=== PATIENT | male | born 1960 | race Two or more races ===

== ENCOUNTER 2016-11-09 19:30 | Emergency (ER) | payer MEDICARE, MEDICAID ==
--- NOTE | ~2016-11-09 | ER ---
PATIENT'S NAME: KATHY HEARN [facility] AGE: 56 Y [address] ROOM: [place] [address] LOCATION: [facility] ADMIT DATE: 11/09/2016 ER/Outpatient Report DISCHARGE DATE: 11/09/2016 FAMILY PHYSICIAN: Elder Cortes MD ATTENDING PHYSICIAN: Bruce Ng Admission date and time documented in the medical record. I saw the patient at 1945 hours. CHIEF COMPLAINT: G-tube fell out and need replacement. HISTORY OF PRESENT ILLNESS: This patient is a 56-year-old male. About 30 minutes prior to admission to the emergency room, his G-tube fell out. The bulb burst and it fell out. He needs a replacement. He has no abdominal pain, back pain, chest pain, shortness of breath. He has no nausea, no diarrhea, and no urinary symptoms. HOME MEDICATIONS: See attached medication list. ALLERGIES: NONE. SOCIAL HISTORY: Nonsmoker and nondrinker. SIGNIFICANT PAST MEDICAL HISTORY: Atherosclerotic ischemic heart disease with coronary artery disease, nasopharyngeal cancer, dyslipidemia, hypothyroidism, bbt-qhtucvv-jevyxocvt diabetes mellitus type 2, chronic kidney disease, hypertension, esophageal stenosis, and obstructive sleep apnea. OPERATIONS: PEG tube placement, appendectomy, chemotherapy, radiation therapy, cardiac catheterization with PTCA and stenting. ROS: All systems reviewed by me are negative with exception of those discussed in the history of the present illness. PHYSICAL EXAMINATION: VITAL SIGNS: Temperature 97.3, tympanic; pulse 88; respiratory rate 14; blood pressure 144/83; O2 saturation on room air is 98%. ABDOMEN: Flat, soft, good bowel tones. No organomegaly or abnormal masses PATIENT'S NAME: KATHY HEARN [facility] AGE: 56 Y [address] ROOM: [place] [address] LOCATION: [facility] ADMIT DATE: 11/09/2016 ER/Outpatient Report DISCHARGE DATE: 11/09/2016 FAMILY PHYSICIAN: Elder Cortes MD ATTENDING PHYSICIAN: Bruce Ng palpable. No CVA tenderness. LUNGS: Clear. HEART: Regular. EMERGENCY DEPARTMENT COURSE: Placed a new PEG tube in place, inflated the balloon with 6 mL of sterile water. Dressed the wounds. The patient tolerated the procedure well. IMPRESSION: Replacement of PEG tube that fell out. PLAN: The patient dismissed home. Observation. Activity as tolerated. Continue present home medications and care. Follow up with personal physician as needed. Discussion ensued with the patient concerning my findings and recommendations, he understands. MD ALFRED BELTRAN/estelle /[id number] d: 11/10/16 0032 t: 11/10/16 1825, OUTPATIENT REPORT
== END 2016-11-09 19:54 | disposition disaster alternative care site (69) ==
LOC: GMED 19:30
PROC: 0D20XUZ Change Feeding Device in Upper Intestinal Tract, External Approach (ICD-10-PCS; principal; 2016-11-09)
DX: Z43.1 Encounter for attention to gastrostomy (principal); I25.10 Atherosclerotic heart disease of native coronary artery without angina pectoris; E78.5 Hyperlipidemia, unspecified; E03.9 Hypothyroidism, unspecified; I12.9 Hypertensive chronic kidney disease with stage 1 through stage 4 chronic kidney disease, or unspecified chronic kidney disease; E11.22 Type 2 diabetes mellitus with diabetic chronic kidney disease; N18.9 Chronic kidney disease, unspecified; G47.33 Obstructive sleep apnea (adult) (pediatric); Z85.22 Personal history of malignant neoplasm of nasal cavities, middle ear, and accessory sinuses; Z90.49 Acquired absence of other specified parts of digestive tract

== ENCOUNTER 2016-12-26 16:04 | Emergency (ER) | payer MEDICARE, MEDICAID ==
--- NOTE | ~2016-12-26 | ER ---
PATIENT'S NAME: KATHY HEARN [facility] AGE: 56 Y [address] ROOM: [place] [address] LOCATION: [facility] ADMIT DATE: 12/26/2016 ER/Outpatient Report DISCHARGE DATE: 12/26/2016 FAMILY PHYSICIAN: Elder Cortes MD ATTENDING PHYSICIAN: Tobias Petersno Time of Arrival: 1610 hours. Time of Exam: 1612 hours. CHIEF COMPLAINT: Left earache. HISTORY OF PRESENT ILLNESS: The patient states he began having pain in his left ear earlier today and he felt it was wet, so he put a Q-tip just in the tip of his ear and blood was on the end of the Q-tip. Denies having any nasal congestion. No runny nose. Has not had a sore throat. Denies feeling feverish. Has not had a cough. He reports that he had a tube placed in the ear 2 months ago for a recurrent ear infection. ALLERGIES: NO KNOWN ALLERGIES. CURRENT MEDICATIONS: On his chart and reviewed by me. PAST MEDICAL HISTORY: Bjb-dldodjb-ykgahuspo diabetes, hypertension, ear infection, heart disease, hypertension, elevated cholesterol, and nasal cancer. PAST SURGERIES: Appendectomy, tympanoplasty tube in the left ear, and cardiac stents. SOCIAL HISTORY: He denies use of tobacco, drugs, or alcohol. REVIEW OF SYSTEMS: All negative other than those mentioned in the HPI. PHYSICAL EXAMINATION: VITAL SIGNS: He weighed 70.5 kg. Blood pressure 154/93, pulse of 94, respirations 18, temperature of 98.6, and O2 saturation is 96% on room air. GENERAL: He is awake, alert, and oriented x4. SKIN: [place], warm, and dry. RESPIRATIONS: Even and nonlabored. Right TM is dull. Left TM has fluid. PATIENT'S NAME: KATHY HEARN [facility] AGE: 56 Y [address] ROOM: [place] [address] LOCATION: [facility] ADMIT DATE: 12/26/2016 ER/Outpatient Report DISCHARGE DATE: 12/26/2016 FAMILY PHYSICIAN: Elder Cortes MD ATTENDING PHYSICIAN: Tobias Peterson The TM looks bloody in nature, but no acute bleeding at this time. Ear canal is clear. Nasal is boggy. Oropharynx is clear. NECK: Supple. No lymphadenopathy. LUNGS: Lung sounds are clear throughout. HEART: Regular rate and rhythm. IMPRESSION: Infected left ear. PLAN: The patient states he was given ear drops right after surgery, most likely Ciprodex. He is to start those now. Use as directed. Tylenol or ibuprofen for fever or discomfort. If he continues to have problems in the next 2-3 days, he needs to follow up with Dr. Watts, his ENT specialist or return to the ER. He verbalized understanding. ALPESH NICOLE APRN FOR MD SELVIN VASQUEZ/estelle /[id number] d: 12/27/16 0117 t: 01/04/17 1934, OUTPATIENT REPORT
== END 2016-12-26 16:17 | disposition disaster alternative care site (69) ==
LOC: GMED 16:04
DX: H66.92 Otitis media, unspecified, left ear (principal); E11.9 Type 2 diabetes mellitus without complications; C76.0 Malignant neoplasm of head, face and neck; I10 Essential (primary) hypertension; E78.00 Pure hypercholesterolemia, unspecified; Z86.79 Personal history of other diseases of the circulatory system; Z90.49 Acquired absence of other specified parts of digestive tract; Z95.5 Presence of coronary angioplasty implant and graft; Z79.82 Long term (current) use of aspirin; Z79.899 Other long term (current) drug therapy

== ENCOUNTER 2017-01-28 09:11 | Emergency (ER) | payer MEDICARE, MEDICAID ==
--- NOTE | ~2017-01-28 | ER ---
PATIENT'S NAME: KATHY HEARN [facility] AGE: 56 Y [address] ROOM: [place] [address] LOCATION: [facility] ADMIT DATE: 01/28/2017 ER/Outpatient Report DISCHARGE DATE: 01/28/2017 FAMILY PHYSICIAN: Elder Cortes MD ATTENDING PHYSICIAN: Chris Bonilla TIME OF ARRIVAL: 0918 hours. TIME OF EVALUATION: 0920 hours. CHIEF COMPLAINT: G-tube came out. HISTORY OF PRESENT ILLNESS: The patient is a 56-year-old male who presents to the emergency department today with a chief complaint of G-tube came out. 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 It occurred about 45 minutes prior to arrival. He denies any fevers or chills. No nausea or vomiting. No diarrhea or constipation. No chest pain. No shortness of breath. No other complaints. This has been working appropriately otherwise. PAST MEDICAL HISTORY: Coronary artery disease, nasopharyngeal cancer, dyslipidemia, hypothyroidism, vbi-zdjbhcu-yeiwczplt diabetes mellitus type 2, chronic kidney disease, hypertension, esophageal stenosis, obstructive sleep apnea. PAST SURGICAL HISTORY: PEG tube placement, appendectomy, chemotherapy, radiation therapy, and cardiac catheterization with percutaneous transluminal coronary angioplasty and stenting. SOCIAL HISTORY: The patient denies any tobacco, alcohol, or illicit drug use. ALLERGIES: NO KNOWN DRUG ALLERGIES. MEDICATIONS: Please see list. PRIMARY CARE DOCTOR: Micah Cooper MD PATIENT'S NAME: KATHY HEARN [facility] AGE: 56 Y [address] ROOM: [place] [address] LOCATION: [facility] ADMIT DATE: 01/28/2017 ER/Outpatient Report DISCHARGE DATE: 01/28/2017 FAMILY PHYSICIAN: Elder Cortes MD ATTENDING PHYSICIAN: Chris Bonilla REVIEW OF SYSTEMS: All systems are reviewed by myself and are negative with the exception of those discussed in HPI and past medical history. PHYSICAL EXAMINATION: VITAL SIGNS: Weight 69.8 kg, blood pressure 155/82, pulse 87, respiratory rate 16, temperature 97.0, oxygen saturation 97% on room air. GENERAL: The patient is a 56-year-old male, who appears stated age, in no acute distress at this time. HEENT: Normocephalic, atraumatic. Pupils are equal, round, and reactive to light. Extraocular motions are intact. Nares are patent bilaterally. TMs are clear. NECK: Supple. There is no nuchal rigidity. CARDIOVASCULAR: Regular rate and rhythm. No murmurs, rubs, or gallops. LUNGS: Clear to auscultation bilaterally. No wheezes, rales, or rhonchi. ABDOMEN: Soft, nontender, and nondistended. No rebound, rigidity, or guarding. The patient does have G-tube at the stoma site. There is no erythema surrounding. SKIN: Otherwise warm and dry. LABORATORY DATA AND X-RAYS: None. IMPRESSION: 1. G-tube dysfunction with replacement. 2. Initial visit. EMERGENCY DEPARTMENT COURSE: The patient was brought back to the examination room. Seen and evaluated by myself. History and physical was performed. The patient's G-tube is replaced. Sterile lubrication is used. The balloon was inflated with 6 mL of sterile water. The gastric contents are obtained. The wound is dressed. The patient tolerated the procedure well. DISPOSITION: The patient is discharged to home in good condition. DO SOCORRO AGUILAR/estelle PATIENT'S NAME: KATHY HEARN [facility] AGE: 56 Y [address] ROOM: [place] [address] LOCATION: [facility] ADMIT DATE: 01/28/2017 ER/Outpatient Report DISCHARGE DATE: 01/28/2017 FAMILY PHYSICIAN: Elder Cortes MD ATTENDING PHYSICIAN: Chris Bonilla /[id number] d: 01/28/17 1348 t: 01/30/17 0708, OUTPATIENT REPORT
== END 2017-01-28 09:40 | disposition disaster alternative care site (69) ==
LOC: GMED 09:11
PROC: 0D9680Z Drainage of Stomach with Drainage Device, Via Natural or Artificial Opening Endoscopic (ICD-10-PCS; principal; 2017-01-28)
DX: K94.23 Gastrostomy malfunction (principal); I25.10 Atherosclerotic heart disease of native coronary artery without angina pectoris; E78.5 Hyperlipidemia, unspecified; E11.22 Type 2 diabetes mellitus with diabetic chronic kidney disease; E03.9 Hypothyroidism, unspecified; I12.9 Hypertensive chronic kidney disease with stage 1 through stage 4 chronic kidney disease, or unspecified chronic kidney disease; N18.9 Chronic kidney disease, unspecified; G47.33 Obstructive sleep apnea (adult) (pediatric); Z90.49 Acquired absence of other specified parts of digestive tract; Z79.82 Long term (current) use of aspirin; Z98.890 Other specified postprocedural states; Z79.899 Other long term (current) drug therapy

== ENCOUNTER 2017-04-10 01:06 | Emergency (ER) | payer MEDICARE, MEDICAID ==
--- NOTE | ~2017-04-10 | ER ---
PATIENT'S NAME: KATHY HEARN [facility] AGE: 57 Y [address] ROOM: [place] [address] LOCATION: ED ADMIT DATE: 04/10/2017 ER/Outpatient Report DISCHARGE DATE: 04/10/2017 FAMILY PHYSICIAN: Elder Cortes MD ATTENDING PHYSICIAN: Chris Bonilla TIME OF ARRIVAL: 0106. TIME OF EVALUATION: 010. CHIEF COMPLAINT: PEG tube fell out. HISTORY OF PRESENT ILLNESS: The patient is a 57-year-old male, who presents to emergency department today with chief complaint of his PEG tube fell out. It has been in for multiple years. He reports he was drying himself off after a shower, and his towel caught it. It ripped out. He denies any abdominal pain. No chest pain. No shortness of breath. The patient does report that he has been working on his car, and does have left gluteal swelling. He denies any trauma or fall. He is able to ambulate. PAST MEDICAL HISTORY: 1. Coronary artery disease. 2. Nasopharyngeal cancer. 3. Dyslipidemia. 4. Hypothyroid. 5. Kqq-hhkeafu-bywxptcru diabetes mellitus, type 2. 6. Chronic kidney disease. 7. Hypertension. 8. Esophageal stenosis. 9. Obstructive sleep apnea. PAST SURGICAL HISTORY: 1. PEG tube placement. 2. Appendectomy. 3. Chemotherapy. 4. Radiation therapy. 5. Heart catheterization with percutaneous transluminal coronary angioplasty and stenting. SOCIAL HISTORY: The patient denies any tobacco, alcohol, or illicit drug use. PATIENT'S NAME: KATHY HEARN [facility] AGE: 57 Y [address] ROOM: [place] [address] LOCATION: [facility] ADMIT DATE: 04/10/2017 ER/Outpatient Report DISCHARGE DATE: 04/10/2017 FAMILY PHYSICIAN: Elder Cortes MD ATTENDING PHYSICIAN: Chris Bonilla ALLERGIES: NO KNOWN DRUG ALLERGIES. MEDICATIONS: Please see list. PRIMARY CARE DOCTOR: Elder Cortes MD ONCOLOGIST: Micah Cooper MD REVIEW OF SYSTEMS: All systems are reviewed by myself, and are negative with the exception of those discussed in HPI and past medical history. PHYSICAL EXAMINATION: VITAL SIGNS: Weight is 65.8 kg. Blood pressure was 126/69, pulse was 83, respiratory rate was 18, temperature was 96.8, and oxygen saturation was 98% on room air. GENERAL: The patient is a 57-year-old male, who appears stated age, in no acute distress. HEENT: Normocephalic and atraumatic. Pupils are equal, round, and reactive to light. Mucous membranes are moist. NECK: Supple. There is no nuchal rigidity. CARDIOVASCULAR: Regular rate and rhythm. No murmurs, rubs, or gallops. LUNGS: Clear to auscultation bilaterally. No wheezes, rales, or rhonchi. ABDOMEN: Soft, nontender, and nondistended. No rebound, rigidity, or guarding. The patient does have G-tube stoma site in the anterior abdominal wall. There is no evidence of erythema or discharge noted. SKIN: Otherwise warm and dry. LABORATORY DATA AND X-RAYS: None. IMPRESSION: 1. G-tube dysfunction with replacement. 2. Left gluteal hematoma. 3. Initial visit. EMERGENCY DEPARTMENT COURSE: The patient was brought back to the examination room. Seen and evaluated by myself. The patient's G-tube is replaced. Sterile lubrication is used. The balloon was infiltrated with 6 mL of sterile water. Gastric contents are PATIENT'S NAME: KATHY HEARN [facility] AGE: 57 Y [address] ROOM: [place], [place] [address] LOCATION: [facility] ADMIT DATE: 04/10/2017 ER/Outpatient Report DISCHARGE DATE: 04/10/2017 FAMILY PHYSICIAN: Elder Cortes MD ATTENDING PHYSICIAN: Chris Bonilla. Wound is dressed. The patient tolerated the procedure well without any issues. The patient also does have evidence of hematoma to the left gluteal region. He denies any trauma or fall, but does report he has been crouching and moving quite a bit and sitting while working on his car. I have recommended followup with Dr. Cortes in two to three days for evaluation. I have discussed gepcta-ni-glgb instructions including worsening symptoms or any other concerns, to return to the emergency department as soon as possible. The patient is agreeable without further questions at this time. DISPOSITION: The patient was discharged home in good condition. DO SOCORRO AGUILAR/estelle /[id number] d: 04/10/17 0325 t: 04/12/17 1846, OUTPATIENT REPORT
== END 2017-04-10 01:28 | disposition disaster alternative care site (69) ==
LOC: GMED 01:06
PROC: 0D20XUZ Change Feeding Device in Upper Intestinal Tract, External Approach (ICD-10-PCS; principal; 2017-04-10)
DX: K94.23 Gastrostomy malfunction (principal); S30.0XXA Contusion of lower back and pelvis, initial encounter; I25.10 Atherosclerotic heart disease of native coronary artery without angina pectoris; E03.9 Hypothyroidism, unspecified; I12.9 Hypertensive chronic kidney disease with stage 1 through stage 4 chronic kidney disease, or unspecified chronic kidney disease; E11.22 Type 2 diabetes mellitus with diabetic chronic kidney disease; N18.9 Chronic kidney disease, unspecified; C11.3 Malignant neoplasm of anterior wall of nasopharynx; G47.33 Obstructive sleep apnea (adult) (pediatric); X50.1XXA Overexertion from prolonged static or awkward postures, initial encounter; Z79.82 Long term (current) use of aspirin; Z79.899 Other long term (current) drug therapy